=== PATIENT | female | born 1970 | race Two or more races ===

== ENCOUNTER 2025-07-20 19:35 | Emergency (ER) | payer OTHER ==
[~2025-07-20] VITALS: Ht 157.5 cm; Wt 86.2 kg
[2025-07-20] MEDS ORDERED: SYNTHROID125 MCG PO (20:16)
[2025-07-20] MEDS ORDERED: AMLODIPINE-OLM1 EACH PO (20:17)
[2025-07-20] MEDS ORDERED: NASAL MIST126 ML (20:17)
[2025-07-20] MEDS ORDERED: KETOROLAC TROMETHAMINE 60 MG VIAL IM ONE ×2 (20:45→21:02)
[2025-07-20] MEDS ORDERED: ORPHENADRINE CITRATE 30 MG/ML AMPUL IM ONE (20:45)
[2025-07-20] MEDS ORDERED: DEXAMETHASONE SODIUM PHOSPHATE 4 MG/ML VIAL IM ONE (20:45)
[2025-07-20] MEDS ORDERED: ACETAMINOPHEN 500 MG GEL..CAP PO ONE ×2 (20:45→21:02)
[2025-07-20] MEDS ORDERED: DEXAMETHASONE SODIUM PHOSPHATE 4 MG/ML VIAL ONE (21:02)
[2025-07-20] MEDS ORDERED: ORPHENADRINE CITRATE 30 MG/ML AMPUL ONE (21:02)
[2025-07-20 21:38] LABS: BASO % 0.8 % (0.1-1.2); EOS # 0.09 (0.04-0.54); EOS % 1.0 % (0.7-7.0); LYMPH # 2.93 (1.18-3.74); LYMPH % 33.0 % (19.3-53.1); MEAN PLATELET VOLUME 10.20 fl (9.4-12.4); MONO # 0.63 (0.24-0.82); MONO % 7.1 % (4.7-12.5); NEUT # 5.13 (1.56-6.13); NEUT % 57.9 % (34.0-71.1); RED CELL DISTRIBUTION WIDTH 13.6 % (11.6-14.4)
[2025-07-20 22:06] LABS: ALT/SGPT 67.0 U/L (12-78); AST/SGOT 30.0 U/L (15-37); BILIRUBIN TOTAL 0.22 mg/dL (0.3-1.2); BUN CREA RATIO 18.0 (7.0-25.0); CREATININE SERUM 0.76 mg/dL (0.55-1.02); GFR 79.31; GLOBULINA 4.1 G/DL (2.4-3.5); GLUCOSE FASTING 110.0 mg/dL (65-100); OSMOLALITY SERUM 284.0 MOSM/KG (275-295)
[2025-07-20 22:30] LABS: URINE APPEARANCE Clear; URINE BILIRRUBIN Negative (NEGATIVE); URINE BLOOD Trace; URINE COLOR Yellow; URINE GLUCOSE Negative (NEGATIVE); URINE KETONE Negative (NEGATIVE); URINE LEUKOCYTE Trace; URINE NITRATE Negative; URINE PROTEIN Negative (NEGATIVE); URINE UROBILINOGEN 0.2 E.U./dl
[2025-07-20 22:32] LABS: URINE BACTERIA 49.1 uL (0.0-1933); URINE EPITHELIAL CELLS 14.0 uL (0.0-38.8); URINE RBC 15.4 uL (0.0-20.8); URINE WBC 14.7 uL (0.0-23.2)
[2025-07-20 22:33] LABS: URINE CAST 0.00 uL (0.0-1.40)
[2025-07-20] MEDS ORDERED: PEPCID AC20 MG PO (23:55)
[2025-07-20] MEDS ORDERED: NORFLEX100MG PO (23:55)
[2025-07-20] MEDS ORDERED: IBU600 MG PO (23:55)
== END 2025-07-21 00:41 | disposition home or self-care (01) ==
LOC: ER 19:36
PROVIDERS: General Practice
DX: M54.16 Radiculopathy, lumbar region (principal); I10 Essential (primary) hypertension